=== PATIENT | male | born 1990 | race African-American/Black ===

== ENCOUNTER 2020-04-17 18:50 | Emergency (ER) | payer SELFPAY ==
[~2020-04-17] VITALS: Ht 182.9 cm; Wt 63.0 kg
== END 2020-04-17 19:45 | disposition home or self-care (01) ==
LOC: FSED 19:20
DX: R07.89 Other chest pain (principal); F12.10 Cannabis abuse, uncomplicated; F17.210 Nicotine dependence, cigarettes, uncomplicated
CPT/HCPCS: 71046; 93005; 99283

== ENCOUNTER 2021-04-04 03:31 | Emergency (ER) | payer SELFPAY ==
[~2021-04-04] VITALS: Ht 182.9 cm; Wt 63.0 kg
[2021-04-04] MEDS ORDERED: ACETAMINOPHEN 325 MG TAB PO ONE (03:45)
== END 2021-04-04 04:40 | disposition home or self-care (01) ==
LOC: ER 03:35
DX: U07.1 COVID-19 (principal)
CPT/HCPCS: 99284; U0002